=== PATIENT | female | born 1980 | race Caucasian/White ===

== ENCOUNTER 2021-12-19 22:16 | Observation (INO) ==
[2021-12-19] MEDS ORDERED: Metoclopramide 10 MG/2 ML VIAL IVP ONE (23:05)
[2021-12-19] MEDS ORDERED: 0.9 % Sodium Chloride 1,000 ML IVC ONE (23:05)
[2021-12-19 23:21] LABS: Basophils % 0.4 %; Hematocrit 40.4 % (35.3-44.9); Immature Granulocytes % 0.5 % (0-4); Lymphocytes # 1.4 K/mcL (0.6-4.6); Lymphocytes % 17.3 %; Mean Corpuscular HGB Conc 33.4 g/dL (31.6-35.5); Mean Corpuscular Volume 80.8 fL (83.0-100.0); Mean Platelet Volume 9.7 fL (9.4-12.4); Monocytes # 0.5 K/mcL (0.0-1.3); Monocytes % 6.2 %; Neutrophils # 6.2 K/mcL (1.6-8.9); Platelet Count 254 K/mcL (140-400); Red Cell Distribution Width 17.2 % (11.5-14.5); Segmented Neutrophils % 75.6 %; White Blood Count 8.2 K/mcL (4.3-11.1)
[2021-12-19 23:27] LABS: Hemoglobin 13.5 g/dL (11.5-15.4)
[2021-12-20] MEDS ORDERED: Ondansetron 4 MG/2 ML VIAL IVP ONE (00:47)
[2021-12-20 01:46] LABS: Bacteria,Urine Few per hpf (None-Few); Bilirubin,Urine Negative (Negative); Blood,Urine Negative (Negative); Clarity,Urine Clear (Clear); Color,Urine Light-Yellow (Yellow); Glucose,Urine (UA) >=1000 mg/dL (Normal); Ketones,Urine 40 mg/dL (Negative); Leukocyte Esterase,Urine Negative (Negative); Mucus,Urine Few per lpf (None-Few); Nitrite,Urine Negative (Negative); PH,Urine 6.5 pH Units (5.0-8.0); Protein,Urine 30 mg/dL (Neg-Trace); RBC,Urine 0-3 per hpf (0-3); Specific Gravity,Urine 1.019 (1.010-1.025); Squamous Epithelial Cell,Urine Few per hpf (None-Few); Urobilinogen,Urine Normal (Normal)
[2021-12-20 01:47] LABS: Alanine Aminotransferase 6 Units/L (7-52); Albumin 3.3 g/dL (3.5-5.7); Albumin/Globulin Ratio 1.5 (1.1-2.2); Alkaline Phosphatase 51 Units/L (34-104); Aspartate Amino Transferase 12 Units/L (13-39); BUN/Creatinine Ratio 11 (6-26); Bilirubin,Total 0.4 mg/dL (0.3-1.0); Blood Urea Nitrogen 5 mg/dL (6-20); Calcium 7.8 mg/dL (8.6-10.3); Carbon Dioxide 27 mEq/L (23-29); Chloride 106 mEq/L (98-107); Globulin 2.2 g/dL (2.4-3.5); Glucose 56 mg/dL (70-105); Lipase 168 Units/L (11-82); Osmolality,Calculated 285 (280-300); Potassium 3.3 mEq/L (3.5-5.1); Sodium 140 mEq/L (136-145); Total Protein 5.5 g/dL (6.4-8.9)
[2021-12-20] MEDS ORDERED: *HR* Dextrose 50 % in Water (Syg) 50 ML SYRINGE IVP ONE (02:02)
[2021-12-20] MEDS ORDERED: Naloxone 0.4 MG/ML INJ IVP PRN (02:57)
[2021-12-20] MEDS ORDERED: Ondansetron 4 MG/2 ML VIAL IVP PRN (02:57)
[2021-12-20] MEDS ORDERED: Dextrose Gel 15 GM/37.5 ML TUBE PO PRN ×2 (03:42)
[2021-12-20] MEDS ORDERED: *HR* Dextrose 50 % in Water (Syg) 50 ML SYRINGE IVP PRN (03:42)
[2021-12-20] MEDS ORDERED: D5% in Water 1,000 ML IVC PRN (03:42)
[2021-12-20] MEDS ORDERED: Metoclopramide 10 MG/2 ML VIAL IVP PRN (03:45)
[2021-12-20] MEDS: Ringers Solution, Lactated 1,000 ML IVC SCH ×2 (06:43→17:20)
[2021-12-20 09:17] LABS: Hematocrit 32.4 % (35.3-44.9); Mean Corpuscular Hemoglobin 26.4 pg (28.0-33.3); Mean Platelet Volume 9.6 fL (9.4-12.4); Platelet Count 209 K/mcL (140-400); Red Blood Count 4.05 M/mcL (3.82-4.97); Red Cell Distribution Width 16.8 % (11.5-14.5); White Blood Count 6.4 K/mcL (4.3-11.1)
[2021-12-20 09:19] LABS: Hemoglobin 10.7 g/dL (11.5-15.4)
[2021-12-20 09:38] LABS: BUN/Creatinine Ratio 10 (6-26); Blood Urea Nitrogen 4 mg/dL (6-20); Calcium 7.6 mg/dL (8.6-10.3); Carbon Dioxide 27 mEq/L (23-29); Chloride 104 mEq/L (98-107); Glucose 74 mg/dL (70-105); Magnesium 1.6 mg/dL (1.6-2.6); Osmolality,Calculated 282 (280-300); Potassium 3.3 mEq/L (3.5-5.1); Sodium 138 mEq/L (136-145)
[2021-12-20] MEDS: Metoclopramide 10 MG/2 ML VIAL IVP SCH ×2 (11:02→17:23)
[2021-12-20] MEDS: Insulin LISPRO 300 UNITS/3 ML VIAL SUBQ SCH ×2 (12:36→17:23)
[2021-12-20] MEDS: Insulin DETEMIR 100 UNIT/ML X5UNITS SUBQ SCH (21:24)
[2021-12-20] MEDS: Apixaban 5 MG TABLET PO SCH (21:24)
[2021-12-20] MEDS: Gabapentin 300 MG CAPSULE PO SCH (21:24)
[2021-12-21] MEDS: Metoclopramide 10 MG/2 ML VIAL IVP SCH ×2 (00:26→05:35)
[2021-12-21] MEDS: Ringers Solution, Lactated 1,000 ML IVC SCH (03:30)
[2021-12-21 05:14] LABS: BUN/Creatinine Ratio 7 (6-26); Blood Urea Nitrogen 4 mg/dL (6-20); Carbon Dioxide 30 mEq/L (23-29); Chloride 103 mEq/L (98-107); Glucose 42 mg/dL (70-105); Magnesium 1.7 mg/dL (1.6-2.6); Osmolality,Calculated 286 (280-300); Phosphorous 3.7 mg/dL (2.7-4.5); Potassium 2.9 mEq/L (3.5-5.1); Sodium 141 mEq/L (136-145)
[2021-12-21] MEDS: Apixaban 5 MG TABLET PO SCH ×2 (08:21→21:04)
[2021-12-21] MEDS: Gabapentin 300 MG CAPSULE PO SCH ×2 (08:22→21:04)
[2021-12-21] MEDS: Cyanocobalamin (B-12) 1,000 MCG TABLET PO SCH (08:22)
[2021-12-21] MEDS: Insulin LISPRO 300 UNITS/3 ML VIAL SUBQ SCH ×3 (08:37→16:21)
[2021-12-21] MEDS: Insulin DETEMIR 100 UNIT/ML X5UNITS SUBQ SCH (08:38)
[2021-12-21] MEDS: Metoclopramide 10 MG/10 ML UD.LIQ PO SCH ×3 (11:45→23:50)
[2021-12-21] MEDS: Cholecalciferol (D-3) 1,000 UNIT (25MCG) TABLET PO SCH (11:46)
[2021-12-21] MEDS ORDERED: Insulin DETEMIR 100 UNIT/ML X5UNITS SUBQ SCH (21:00)
[2021-12-22] MEDS: Metoclopramide 10 MG/10 ML UD.LIQ PO SCH ×2 (06:32→12:04)
[2021-12-22] MEDS: Insulin LISPRO 300 UNITS/3 ML VIAL SUBQ SCH ×2 (07:58→12:06)
[2021-12-22] MEDS: Cholecalciferol (D-3) 1,000 UNIT (25MCG) TABLET PO SCH (07:59)
[2021-12-22] MEDS: Cyanocobalamin (B-12) 1,000 MCG TABLET PO SCH (07:59)
[2021-12-22] MEDS: Apixaban 5 MG TABLET PO SCH (07:59)
[2021-12-22] MEDS: Gabapentin 300 MG CAPSULE PO SCH (07:59)
[2021-12-22 10:17] VITALS: BP 107/72; PULSE 77; TEMP 98.2; O2SAT 96
[2021-12-22 11:49] LABS: Basophils # 0.1 K/mcL (0.0-0.2); Basophils % 0.7 %; Eosinophils # 0.1 K/mcL (0.0-0.6); Eosinophils % 0.9 %; Hematocrit 33.2 % (35.3-44.9); Hemoglobin 10.6 g/dL (11.5-15.4); Immature Granulocytes % 1.2 % (0-4); Lymphocytes % 43.6 %; Mean Corpuscular HGB Conc 31.9 g/dL (31.6-35.5); Mean Corpuscular Hemoglobin 26.7 pg (28.0-33.3); Mean Corpuscular Volume 83.6 fL (83.0-100.0); Mean Platelet Volume 9.8 fL (9.4-12.4); Monocytes # 0.9 K/mcL (0.0-1.3); Monocytes % 13.8 %; Neutrophils # 2.7 K/mcL (1.6-8.9); Platelet Count 284 K/mcL (140-400); Red Blood Count 3.97 M/mcL (3.82-4.97); Red Cell Distribution Width 16.9 % (11.5-14.5); Segmented Neutrophils % 39.8 %; White Blood Count 6.8 K/mcL (4.3-11.1)
[2021-12-22 12:52] LABS: BUN/Creatinine Ratio 5 (6-26); Blood Urea Nitrogen 3 mg/dL (6-20); Calcium 8.3 mg/dL (8.6-10.3); Carbon Dioxide 27 mEq/L (23-29); Chloride 102 mEq/L (98-107); Glucose 192 mg/dL (70-105); Osmolality,Calculated 288 (280-300); Potassium 4.1 mEq/L (3.5-5.1); Sodium 138 mEq/L (136-145)
[2021-12-23] MEDS ORDERED: Tiotropium 10 INH DOSE IH SCH (10:00)
== END 2021-12-22 14:19 | disposition home or self-care (01) ==
LOC: 3ANU 22:16 → EMEROOARM 22:16 → SUATTDRO 12-20 03:01 → 3ANU 12-20 03:59
PROVIDERS: ADMIT Internal Medicine; ATTEND Internal Medicine